=== PATIENT | female | born 1980 | race Caucasian/White ===

== ENCOUNTER 2024-09-15 16:54 | Emergency (ER) | payer OTHER ==
[~2024-09-15] VITALS: Ht 174 cm; Wt 76.2 kg
[~2024-09-15 16:54] MED LIST: CYCLOBENZAPRINE5 MG PO; NAPROSYN500 MG PO; PREDNISONE20 MG PO; TYLENOL325 MG PO
[2024-09-15 17:20] VITALS: PULSE 85; RESP 18; TEMP 99; O2SAT 99
[2024-09-15] MEDS ORDERED: DIPHENHYDRAMINE25 M2 PO (17:48)
[2024-09-15] MEDS ORDERED: IBUPROFEN200 MG PO (17:48)
[2024-09-15] MEDS ORDERED: BACTRIM 400-801 EACH PO (17:48)
[2024-09-15] MEDS ORDERED: OFLOXACIN5 M1 OS (17:48)
== END 2024-09-15 17:54 | disposition home or self-care (01) ==
LOC: FSED 17:03
DX: R50.9 Fever, unspecified (principal); H00.034 Abscess of left upper eyelid; H10.9 Unspecified conjunctivitis; I10 Essential (primary) hypertension; F17.210 Nicotine dependence, cigarettes, uncomplicated
CPT/HCPCS: 99282